=== PATIENT | male | born 1935 | race Caucasian/White ===

== ENCOUNTER 2019-09-18 12:46 | Emergency (ER) | payer MEDICARE ==
[~2019-09-18] VITALS: Ht 177.8 cm; Wt 69.9 kg
--- NOTE | 2019-09-18 13:22 | PHYS DOC ---
Past History Past Medical History: No Pertinent History Past Surgical History: Other Additional Past Surgical Histo: LEFT SHOULDER/RIGHT KNEE Alcohol Use: Occasionally Drug Use: None Adult General Chief Complaint Chief Complaint: COUGH HPI HPI Patient is a 84-year-old male who presents with multiple medical complaints. Patient reports generalized fatigue, malaise, nonproductive cough, nausea and black loose stools for the past several days. Reports decreased appetite. No fevers chills, sweats. No chest pain palpitations shortness of breath. Intermittent abdominal pain. No urinary frequency urgency. No other acute symptoms or complaints. Patient has not been evaluated for symptoms prior to today's ED visit.[] Review of Systems Review of Systems Review symptoms as per history of present illness. All other review symptoms are negative. All other systems were reviewed and found to be within normal limits, except as documented in this note. Allergies Allergies Allergies Coded Allergies Type Severity Reaction Last Updated Verified No Known Drug Allergies 09/18/19 No Physical Exam Physical Exam Constitutional: Well developed, well nourished, no acute distress, jaundiced. [] HENT: Normocephalic, atraumatic, bilateral external ears normal, oropharynx moist, no oral exudates, nose normal. [] Eyes: PERRLA, EOMI, conjunctiva normal, no discharge. [] Neck: Normal range of motion, no tenderness, supple, no stridor. [] Cardiovascular:Heart rate regular rhythm, no murmur [] Lungs & Thorax: Bilateral breath sounds clear to auscultation [] Abdomen: Bowel sounds normal, soft, no tenderness. [] Skin: Warm, dry, no erythema, no rash. [] Back: No tenderness, no CVA tenderness. [] Extremities: No tenderness, no cyanosis, no clubbing, ROM intact, no edema. [] Neurologic: Alert and oriented X 3, normal motor function, normal sensory function, no focal deficits noted. [] Psychologic: Affect normal, judgement normal, mood normal. [] Current Patient Data Vital Signs Vital Signs Date Time Temp Pulse Resp B/P (MAP) Pulse Ox O2 Delivery O2 Flow Rate FiO2 09/18/19 12:55 97.5 61 20 97 Room Air EKG EKG [EKG: reviewed] Radiology/Procedures Radiology/Procedures CXR: reviewed[] Course & Med Decision Making Course & Med Decision Making Pertinent Labs and Imaging studies reviewed. (See chart for details) [Patient with acute GI bleed with anemia and thrombocytopenia. No melena or bloody bowel movements on the ED. Vital signs stable. Patient also and check congestive heart failure and acute kidney injury. Dr. Ferro accepts patient to [facility]. ] Dragon Disclaimer Dragon Disclaimer This electronic medical record was generated, in whole or in part, using a voice recognition dictation system. Departure Departure: Impression: Primary Impression: GI bleed Additional Impressions: Congestive heart failure Anemia Thrombocytopenia Acute kidney failure Disposition: 05 TRANSFER OTHER Condition: STABLE Referrals: SAURABH SERNA (PCP) Problem Qualifiers ALISSON YE DO Sep 18, 2019 13:22
[2019-09-18 13:30] LABS: BASO # 0.1 x10^3/uL (0.0-0.2); BASO % 0 % (0-3); EOS # 0.5 x10^3/uL (0.0-0.7); EOS % 2 % (0-3); HEMATOCRIT 20.4 % (39.0-53.0); LYMPH # 0.7 x10^3/uL (1.0-4.8); LYMPH % 3 % (24-48); MEAN CORPUSCULAR HEMOGLOBIN 34 pg (25-35); MEAN CORPUSCULAR HGB CONC 32 g/dL (31-37); MEAN CORPUSCULAR VOLUME 105 fL (79-100); MONO # 7.6 x10^3/uL (0.0-1.1); MONO % 35 % (0-9); NEUT # 12.8 x10^3uL (1.8-7.7); NEUT % 59 % (31-73); PLATELET COUNT 46 x10^3/uL (140-400); RED BLOOD COUNT 1.94 x10^6/uL (4.30-5.70); RED CELL DISTRIBUTION WIDTH 21.5 % (11.5-14.5); WHITE BLOOD COUNT 21.7 x10^3/uL (4.0-11.0)
[2019-09-18 13:31] LABS: HEMOGLOBIN 6.5 g/dL (13.0-17.5)
--- NOTE | 2019-09-18 13:37 | RAD ---
EXAM: Chest, 2 views. HISTORY: Shortness of breath. COMPARISON: 08/07/2018 FINDINGS: 2 views of chest are obtained. There is no infiltrate, pleural effusion or pneumothorax. The heart is normal in size. There is hyperinflation due to inspiratory effort or emphysema. There is a cardiac pacemaker with lead in expected position. There is blunting of the right costophrenic angle likely due to basilar pleural thickening. There is a faint nodular opacity overlying the right mid thorax which is likely due to overlying artifact. IMPRESSION: No acute pulmonary finding. Electronically signed by: Nevin Qureshi MD (09/18/2019 1:34 PM) [place] [id number]
[2019-09-18 13:42] LABS: ALBUMIN 3.3 g/dL (3.4-5.0); ALBUMIN/GLOBULIN RATIO 0.9 (1.0-1.7); CALCIUM 8.7 mg/dL (8.5-10.1); CREATININE 2.6 mg/dL (0.7-1.3); GFR 23.7; POTASSIUM 3.5 mmol/L (3.5-5.1); TOTAL BILIRUBIN 0.9 mg/dL (0.2-1.0); TOTAL PROTEIN 7.1 g/dL (6.4-8.2)
[2019-09-18 13:51] LABS: INFLUENZA A PATIENT NEGATIVE (NEGATIVE); INFLUENZA B PATIENT NEGATIVE (NEGATIVE)
[2019-09-18 14:05] LABS: % BANDS 5 % (0-9); % EOS 2 % (0-5); % LYMPHS 8 % (24-48); % METAS 1 % (0-0); % MONOS 35 % (0-10); % SEGS 49 % (35-66); ANISOCYTOSIS PRESENT; PLT ESTIMATE DECREASED (ADEQUATE); POIKILOCYTOSIS PRESENT; POLYCHROMASIA PRESENT
[2019-09-18 14:06] LABS: HYPOCHROMIA SLIGHT; OVALOCYTES OCC; TEAR DROP CELLS OCC
[2019-09-18 14:11] LABS: FECAL OB PT POSITIVE (NEG)
[2019-09-18] MEDS: PANTOPRAZOLE IV 40 MG VIAL. IVP ONE (14:11)
[2019-09-18] MEDS: IV NORMAL SALINE 1,000ML 1,000 ML IV ONE (14:20)
[2019-09-18 14:24] LABS: BACTERIA,URINE FEW /HPF (0-FEW); BILIRUBIN,URINE NEG (NEG); CLARITY,URINE HAZY; COLOR,URINE YELLOW; GLUCOSE,URINE NEG (NEG); NITRITE,URINE NEG (NEG); SQUAMOUS EPITHELIAL CELL,UR OCC /LPF; UROBILINOGEN,URINE 0.2 mg/dL (0.2 mg/dL)
[2019-09-18 14:25] LABS: AMORPHOUS SEDIMENT,UR PRESENT /HPF; GRANULAR CASTS,URINE MOD /HPF; HYALINE CASTS, URINE OCC /HPF
[2019-09-18] MEDS: PANTOPRAZOLE IV 80 MG in IV NORMAL SALINE 100ML 100 ML IV ONE (14:36)
[2019-09-18] MEDS: AZITHROMYCIN 250 MG TABLET. PO ONE (15:21)
[2019-09-18] MEDS ORDERED: IV NORMAL SALINE 100ML 100 ML ONE (15:40)
[2019-09-18] MEDS: FUROSEMIDE 40 MG/4 ML VIAL IVP ONE (15:43)
[2019-09-18 17:03] VITALS: BP 115/52
== END 2019-09-18 18:00 | disposition short-term general hospital (02) ==
LOC: ER 12:46
DX: K92.2 Gastrointestinal hemorrhage, unspecified (principal); I50.9 Heart failure, unspecified; D69.6 Thrombocytopenia, unspecified; N17.9 Acute kidney failure, unspecified
CPT/HCPCS: 36415; 71046; 80053; 81001; 82140; 82274; 83605; 83880; 84484; 85007; 85025; 86850; 86900; 86901; 87804; 96365; 96366; 96375; 96376; 99285; C9113; J0456; J0696; J1940; J7030

== ENCOUNTER → 2019-10-18 | Outpatient (CLI) | payer MEDICARE ==
[2019-09-18 17:03] VITALS: BP 115/52
[2019-10-18 16:04] LABS: CALCIUM 8.7 mg/dL (8.5-10.1); CREATININE 2.7 mg/dL (0.7-1.3); GFR 22.7
== END | disposition home or self-care (01) ==
LOC: LAB 14:24
PROVIDERS: ATTEND Internal Medicine Cardiovascular Disease
DX: I50.9 Heart failure, unspecified (principal)
CPT/HCPCS: 36415; 80048; 83880